=== PATIENT | female | born 1985 ===

== ENCOUNTER → 2017-11-20 05:52 | Outpatient (REF) | payer OTHER, SELFPAY ==
[2017-11-23 12:35] LABS: QuantiFERON TB NEGATIVE (Negative)
[2017-11-26 13:43] LABS: Rapid Plasma Reagin NON-REACTIVE
== END ==
LOC: LAB 05:52
PROVIDERS: Visit Provider Family Medicine Adult Medicine
DX: Z00.00 Encounter for general adult medical examination without abnormal findings (principal)
CPT/HCPCS: 86480; 86592; 87591